=== PATIENT | female | born 1985 | race Caucasian/White ===

== ENCOUNTER 2016-12-16 19:42 | Emergency (ER) | payer OTHER ==
[~2016-12-16] VITALS: Ht 172.7 cm; Wt 75.0 kg
[2016-12-16 19:51] VITALS: BP 115/72; PULSE 65; RESP 15; O2SAT 100
--- NOTE | 2016-12-16 22:19 | ED.REPORT ---
HPI-Extremity Problem Lower Date of Service Dec 16, 2016 ED Provider: Frank Loyd MD Pt is a 31 y.o. female who presents to the ED c/o right knee pain radiating to her lower leg onset today. Pt states that she was attacked by a rooster earlier today and his talons punctured her knee. Since onset she has had associated swelling and difficulty ambulating due to pain. Nursing Notes Stated Complaint: RIGHT KNEE AND LEG INJURY AND PAIN Chief Complaint: Extremity Trauma Nursing Notes Reviewed: Yes Allergies: Coded Allergies: No Known Allergies (Unverified , 12/16/16) General Time Seen by MD: 22:18 Chief Complaint Knee injury right Hx Obtained From: Patient Arrived By: Walk-in Onset Occurred: 1 - 4 hours ago Symptom Duration: Since onset Caused by: Animal bite (Rooster) Context: Occurred at: Home injury Location: : Knee right: Leg right Quality: Painful Severity: Current: Severe Associated with: Reports: Unable to walk Recent Healthcare: No recent doctor visit, No recent hospitalization Similar Sx Previous: No Past Medical History Past Medical History None reported Past Surgical History thyroid Smoking History Never Smoker Social History Alcohol Use: Denies alcohol use Drug Use: THC Occupation lives with partner Ambulatory Status Independent Review of Systems Musculoskeletal: Reports: Extremity pain (Right leg), Joint pain (Right knee), Joint swelling (Right knee) Neurologic: Reports: Problem walking (due to pain) Complete sys rev & neg: except as marked. Physical Exam Initial Vital Signs Vital Signs (First) Date Time Temp Pulse Resp B/P Pulse Ox O2 Delivery O2 Flow Rate FiO2 12/16/16 19:51 36.4 65 15 115/72 100 Room Air Initial VS: Reviewed, Vital signs normal General/Constitutional: Well-developed, Well-nourished Head / Eyes: Atraumatic, Normocephalic Respiratory: Breath sounds normal, No respiratory distress Cardiovascular: Regular rate & rhythm, Intact distal pulses Upper Extremities: Vascular intact, Neuro intact Skin: Warm, Dry, No cyanosis Neurologic: Alert, Oriented, Nonfocal Psychiatric: Mood/affect normal, Behavior normal, Normal thought content Lower Extremity / Pelvis / MS: Neurologic intact, Vascular intact Right Knee: Positive: Erythema present, ROM painful, ROM reduced, Swelling present..., Tenderness present... Trauma / Burn / Environmental: Positive: Puncture wound Puncture wound to lateral right patella, with surrounding erythema and swelling. Puncture wound to medial aspect of right upper calf, with surrounding bruising Ankle / Foot: Atraumatic, Inspection NL Re-Eval/Medical Decision Med Decision/Clinical Course Small puncture wounds on the leg with fairly rapid onset of erythema and pain likely indicating a cellulitis. She was treated with first dose of IV antibiotic and will be discharged with Augmentin. She will follow up with her primary doctor for further evaluation and treatment. Source of Hx: Old records Re-Evaluation/Progress : Time of Eval: 23:07 Re-Evaluation/Progress Note: Pt rechecked. Discussed plan for discharge, pt understands and agrees with plan. Counseled Regarding: Diagnosis, Need for follow-up, When/why to return to ED Discharge & Departure Impression: Primary Impression: Struck by chicken Encounter type: initial encounter Qualified Code: W61.32XA - Struck by chicken, initial encounter Additional Impression: Chicken coop as place of occurrence of external cause Disposition: Home Discharge Condition All VS Reviewed: Yes Condition: Stable Patient Instructions: Puncture Wound (ED) Additional Instructions: This appears to be getting infected. Augmentin 875 mg twice daily, #20 dispensed. Warm compresses. Use the knee immobilizer to decrease movement to decrease the spread of infection and to decrease pain. Follow-up with your regular doctor in 1-2 days as needed. Referrals: [facility] (PCP) [facility] Nicholas Attestation Portions of this note were transcribed by Bassem Jung. I, Dr. Loyd personally performed the history, physical exam and medical decision-making; I reviewed and confirmed the accuracy of the information in the transcribed note. Signed by: Nicholas Ibrahim, 12/16/16 and 2302. copies to: [facility] Frank Loyd MD Dec 16, 2016 22:19 BASSEM JUNG Dec 16, 2016 22:30
[2016-12-16] MEDS ORDERED: HYDROcodone-APAP 5-325 mg Tablet PO ONE (22:40)
[2016-12-16 23:31] VITALS: BP 111/69; PULSE 64; RESP 15; O2SAT 100
[2016-12-17] MEDS ORDERED: _Amoxicillin-Clavulanate 875-125 mg Tablet PO SCH (08:30)
== END 2016-12-16 23:34 | disposition home or self-care (01) ==
LOC: SED 19:42
DX: S81.031A Puncture wound without foreign body, right knee, initial encounter (principal); W61.32XA Struck by chicken, initial encounter; Y93.89 Activity, other specified; Y92.72 Chicken coop as the place of occurrence of the external cause; Y99.8 Other external cause status